=== PATIENT | female | born 1995 | race American Indian/Alaskan Native ===

== ENCOUNTER 2017-06-26 18:52 | Emergency (ER) | payer MEDICAID ==
[2017-06-26 18:52] VITALS: BMI 17.8
[2017-06-26 19:11] VITALS: RESP 20
--- NOTE | 2017-06-26 19:53 | C.PDOC ---
History Of Present Illness 21 y/o female presents to ED with complaints of dental pain since this morning while eating. Patient states she has had similar symptoms intermittently for a "long time" and has seen dentist who "put tissue on it" and told her to return. At ED patient is requesting for tooth to be extracted. Patient denies fever, chills, nausea, vomiting, active bleeding, discharge or any other complaints at this time. Time Seen by Provider: 06/26/17 19:30 Chief Complaint (Nursing): Dental Pain History Per: Patient History/Exam Limitations: no limitations Onset/Duration Of Symptoms: Hrs Current Symptoms Are (Timing): Still Present Past Medical History Reviewed: Historical Data, Nursing Documentation, Vital Signs Vital Signs: Last Vital Signs Temp 97.9 F 06/26/17 20:27 Pulse 75 06/26/17 20:27 Resp 20 06/26/17 20:27 BP 106/69 06/26/17 20:27 Pulse Ox 98 06/26/17 21:20 Family History: States: No Known Family Hx - Social History Hx Tobacco Use: Yes Hx Alcohol Use: Yes Hx Substance Use: Yes - Immunization History Hx Tetanus Toxoid Vaccination: No Hx Influenza Vaccination: No Hx Pneumococcal Vaccination: No Review Of Systems Except As Marked, All Systems Reviewed And Found Negative. Constitutional: Negative for: Fever, Chills ENT: Positive for: Mouth Pain (Dental). Negative for: Mouth Swelling Gastrointestinal: Negative for: Nausea, Vomiting Skin: Negative for: Rash Neurological: Negative for: Weakness, Numbness Physical Exam - Physical Exam Appears: Non-toxic, No Acute Distress Skin: Normal Color, Warm, Dry, No Rash Head: Atraumatic, Normacephalic Eye(s): bilateral: Normal Inspection, EOMI Nose: Normal Oral Mucosa: Moist Teeth: Caries, Tender To Palpation, Other (Tender to the right 4th molar, tooth has large micky and filling) Gingiva: No Erythema, No Swelling, No Tender, No Abscess Throat: Normal, No Erythema Neck: Normal ROM, Supple Chest: Symmetrical Cardiovascular: Rhythm Regular Respiratory: Normal Breath Sounds, No Accessory Muscle Use Neurological/Psych: Oriented x3, Normal Speech, Normal Cognition ED Course And Treatment O2 Sat by Pulse Oximetry: 98 (RA) Pulse Ox Interpretation: Normal Progress Note: Patient was advised to follow up with Dentist in 1-2 days. Reevaluation Time: 19:35 Reassessment Condition: Improved Disposition - Disposition Referrals: Rajan Sood [facility] [Outside] Disposition: HOME/ ROUTINE Disposition Time: 19:50 Condition: STABLE Additional Instructions: Follow up with dentist in 1-2 days. Prescriptions: Amoxicillin 875 mg PO BID #14 tablet Ibuprofen [Motrin] 1 tab PO TID PRN #20 tab PRN Reason: Pain Instructions: Toothache (ED) Forms: [employer] (Angolan) - Clinical Impression Clinical Impression: Pain, dental - PA / CANDY DIPPER / Resident Statement MD/DO has reviewed & agrees with the documentation as recorded. - Scribe Statement The provider has reviewed the documentation as recorded by the Sofiaibmontserrat Casiano All medical record entries made by the Sofiaibmontserrat were at my direction and personally dictated by me. I have reviewed the chart and agree that the record accurately reflects my personal performance of the history, physical exam, medical decision making, and the department course for this patient. I have also personally directed, reviewed, and agree with the discharge instructions and disposition.
[2017-06-26 20:28] VITALS: BP 106/69; PULSE 75; TEMP 97.9
[2017-06-26 21:16] VITALS: O2SAT 98
== END 2017-06-26 20:02 | disposition home or self-care (01) ==
LOC: C.ER 18:52
DX: K08.89 Other specified disorders of teeth and supporting structures (principal)

== ENCOUNTER 2018-01-05 22:08 | Emergency (ER) | payer SELFPAY ==
[2018-01-05 22:08] VITALS: BMI 17.8
[2018-01-05 22:17] VITALS: BP 117/81; PULSE 70; RESP 14; TEMP 97.4; O2SAT 98
--- NOTE | 2018-01-05 23:11 | C.PDOC ---
History Of Present Illness 22 y/o female presents to ED with complaints of sharp left ear pain that began 1 day ago. Denies fever, cough. drainage, or trauma to ear. Time Seen by Provider: 01/05/18 22:20 Chief Complaint (Nursing): ENT Problem History Per: Patient History/Exam Limitations: None Onset/Duration Of Symptoms: Days (1) Current Symptoms Are (Timing): Still Present Quality (Ear): Pain W/Touch. denies: Discharge Quality (Mouth/Throat): denies: Drainage Symptoms Have Been: Continuous Past Medical History Reviewed: Historical Data, Nursing Documentation, Vital Signs Vital Signs: Last Vital Signs Temp 97.4 F L 01/05/18 22:14 Pulse 70 01/05/18 22:14 Resp 14 01/05/18 22:14 BP 117/81 01/05/18 22:14 Pulse Ox 98 01/07/18 22:52 - Medical History PMH: No Chronic Diseases Family History: States: Unknown Family Hx - Social History Hx Tobacco Use: Yes Hx Alcohol Use: Yes Hx Substance Use: Yes - Immunization History Hx Tetanus Toxoid Vaccination: No Hx Influenza Vaccination: No Hx Pneumococcal Vaccination: No Review Of Systems Constitutional: Negative for: Fever, Chills ENT: Positive for: Ear Pain (left ear). Negative for: Ear Discharge, Other ( trauma, drainage) Respiratory: Negative for: Cough Neurological: Negative for: Weakness, Numbness Physical Exam - Physical Exam Appears: Well, Non-toxic, No Acute Distress Skin: Normal Color, Warm, Dry Head: Atraumatic, Normacephalic Eye(s): bilateral: Normal Inspection Ear(s): Bilateral: Other (100% cerumen impaction. Right ear 75% cerumen. ) Oral Mucosa: Moist Neck: Supple Chest: Symmetrical, No Tenderness Cardiovascular: Rhythm Regular Neurological/Psych: Oriented x3, Normal Speech, Normal Cognition ED Course And Treatment O2 Sat by Pulse Oximetry: 98 (RA) Pulse Ox Interpretation: Normal Medical Decision Making Medical Decision Making: The TM was found to be erythematous after being cleaned. No perforation. will treat for possible amoxicilin. Administered Motrin and Amoxicillin. Disposition - Disposition Referrals: Delonte Juan MD [Staff Provider] - Disposition: HOME/ ROUTINE Disposition Time: 23:11 Condition: GOOD Additional Instructions: Follow up with Dr. Juan 1-2 days without fail. Return if worsened. Prescriptions: Amoxicillin/Clavulanate [Augmentin 875 MG-125 MG] 1 tab PO BID #14 tab Ibuprofen [Motrin] 1 tab PO TID PRN #30 tab PRN Reason: Pain Instructions: Ear Infections (Otitis Media), Ear Wax Impaction Forms: [employer] (Italian) - Clinical Impression Clinical Impression: Cerumen impaction, Otitis media - PA / DISK RECOATER / Resident Statement MD/DO has reviewed & agrees with the documentation as recorded. - Scribe Statement The provider has reviewed the documentation as recorded by the Scribe Vilma Baron All medical record entries made by the Sofiaibmontserrat were at my direction and personally dictated by me. I have reviewed the chart and agree that the record accurately reflects my personal performance of the history, physical exam, medical decision making, and the department course for this patient. I have also personally directed, reviewed, and agree with the discharge instructions and disposition. Procedures - Ear Wax Removal Left Ear Cerumenolytic Used: other (peroxide) Result: Re-examined: some cerumen remains TM Examination: TM(s) erythematous Ear Canal Exam: atraumatic, other (No bleeding) Patient Tolerated Procedure: no complications Complications: pain Technique: ear canal curetted
[2018-01-05] MEDS ORDERED: Amoxicillin-Clav 500-125 mg Tab PO STA (23:15)
[2018-01-05] MEDS ORDERED: Amoxicillin-Clav 500-125 mg Tab PO ONE (23:19)
== END 2018-01-05 23:20 | disposition home or self-care (01) ==
LOC: C.ER 22:08
DX: H61.22 Impacted cerumen, left ear (principal); H66.92 Otitis media, unspecified, left ear; Z72.0 Tobacco use

== ENCOUNTER 2018-11-14 19:37 | Emergency (ER) | payer MEDICAID | END 2018-11-14 21:46 | disposition home or self-care (01) | LOC: C.ER 19:37 ==